=== PATIENT | female | born 1960 | race Two or more races ===

== ENCOUNTER 2018-11-23 07:13 | Emergency (ER) | payer MEDICAID ==
--- NOTE | 2018-11-23 07:38 | EDPHY ---
H & P Stated Complaint: c/o lt wrist /unable to bend middle finger of LT hand x 2 wks - no trauma Time Seen by Provider: 11/23/18 07:21 HPI/ROS: Chief Complaint: Finger pain HPI: 58-year-old woman complaining of pain in her left middle finger which has been present for the last 2 weeks. She denies any injuries. Patient states that she has pain with flexing her distal 3rd finger joint. She does have repetitive use at work. Denies any prior injuries. No redness. No swelling. No numbness or weakness. ROS: 10 systems were reviewed and were negative except those elements noted in the HPI. PMH: Denies Social History: [No] smoking, [no] alcohol, [ no recreational drug use] Family History: [non-contributory] Physical Exam: General: Awake, alert, no acute distress Left upper extremity: Left elbow: Nontender, no deformity, full range of motion without pain, no warmth or erythema. Left wrist: Nontender, no deformity, full range of motion without pain, no warmth or erythema. Left hand: Nontender, no deformity, full range of motion without pain, no warmth or erythema. Left fingers: Patient has mild tenderness over the D IP joint dorsally of the left 3rd finger. She has decreased range of motion of the D AP secondary to pain. No tenderness or decreased range of motion of the PIP or MCP joint. There is no swelling. There is no erythema. - Personal History Current Tetanus Diphtheria and Acellular Pertussis (TDAP): Yes - Medical/Surgical History Other PMH: DENIES - Social History Smoking Status: Never smoked Constitutional: Initial Vital Signs Temperature (C) 36.6 C 11/23/18 07:20 Heart Rate 77 11/23/18 07:20 Respiratory Rate 18 11/23/18 07:20 Blood Pressure 157/99 H 11/23/18 07:20 O2 Sat (%) 94 11/23/18 07:20 O2 Delivery Mode Room Air Allergies/Adverse Reactions: acetaminophen [From Percocet] Allergy (Verified 11/19/14 14:45) oxycodone HCl [From Percocet] Allergy (Verified 11/19/14 14:45) propoxyphene napsylate [From Darvocet-N] Allergy (Verified 11/19/14 14:45) Home Medications: Medication Instructions Recorded Ibuprofen [Motrin (*)] 600 mg PO Q6 #15 tab 11/19/14 Medical Decision Making - Diagnostics Imaging Results: I do not appreciate any acute injury on her x-ray. Imaging: I viewed and interpreted images myself ED Course/Re-evaluation: 58-year-old with finger pain, possibly secondary to an overuse syndrome. I do not appreciate any abnormalities on her x-ray. Will discharge with follow-up with Hand surgery. Departure - Departure Disposition: Home, Routine, Self-Care Clinical Impression: Finger pain Condition: Good Instructions: Arthralgia (ED) Additional Instructions: Take ibuprofen, 600 mg every 8 hr. You may alternate with acetaminophen, 1000 mg every 8 hr. Follow up with hand surgeon in 4-5 days if symptoms are not improving. Referrals: Todd Hein MD [Medical Doctor] - As per Instructions
[2018-11-23 08:24] VITALS: BP 137/85
== END 2018-11-23 08:38 | disposition home or self-care (01) ==
LOC: CED 07:13
DX: M79.645 Pain in left finger(s) (principal)
CPT/HCPCS: 73140-PO; 99283-ER